=== PATIENT | female | born 1955 | race Caucasian/White ===

== ENCOUNTER 2017-02-28 10:33 | Inpatient (IN) | payer BC ==
[~2017-02-28] VITALS: Ht 165.1 cm; Wt 106.2 kg
[~2017-02-28 10:33] MED LIST: ACET325T16 PO; ESTR0.5T PO; LISI1TAB7 PO; METF500T4 PO; OMEP20CA9 PO; PREG100C PO; SERT100T8 PO; SUCR1TAB35 PO; TOPI100T8 PO
--- NOTE | 2017-02-28 10:46 | PHYS DOC ---
Past Medical History Past Medical History: Depression, Diabetes-Type II, Fibromyalgia, High Cholesterol, Hypertension, Migraines Additional Past Medical Histor: SPASTIC COLON, TMJ Past Surgical History: Cholecystectomy, Hysterectomy, Tubal ligation Additional Past Surgical Histo: KIDNEY STONES, L EAR Alcohol Use: None Drug Use: None Adult General Chief Complaint Chief Complaint: CHEST PAIN HPI HPI Patient is a 61 year old female who presents with with chest pain. She states it started last night last about 3 hours it came on at rest nothing made the pain better or worse pain she describes it as a pressure/throbbing pain in the left chest that did not radiate. She rated a 5 out of 10. She denied any shortness of breath or nausea with this or diaphoresis. It went away last night and this morning it returned. This morning it returned, she does states she felt some tingling in her right arm and she rated a 3 out of 10 at that time. And then it resolved again and came back a third time. Again there was no activities associated with this discomfort. She was just sitting in a car driving with her when the pain returned. She presented the ER and states the pains of 3 out of 10 and has no associated symptoms down her arms at this time, no nausea, no shortness of breath. One nitroglycerin did take it down to a 2. She was admitted in 2016 and had negative stress test at that time. She does have family history with her father having coronary disease in his 60s and her mother in her 70s. She does have dyslipidemia, diabetes, hypertension and is allergic to statins. Review of Systems Review of Systems Constitutional: Denies fever or chills [] Eyes: Denies change in visual acuity, redness, or eye pain [] HENT: Denies nasal congestion or sore throat [] Respiratory: Denies cough or shortness of breath [] Cardiovascular: No additional information not addressed in HPI [] GI: Denies abdominal pain, nausea, vomiting, bloody stools or diarrhea [] : Denies dysuria or hematuria [] Musculoskeletal: Denies back pain or joint pain [] Integument: Denies rash or skin lesions [] Neurologic: Denies headache, focal weakness or sensory changes [] Endocrine: Denies polyuria or polydipsia [] Current Medications Current Medications Current Medications Medications (Trade) Dose Ordered Sig/Jason Start Time Stop Time Status Last Admin Dose Admin Nitroglycerin (Nitrostat) 0.4 mg PRN Q5MIN PRN 02/28/17 12:15 02/28/17 12:13 0.4 MG Allergies Allergies Allergies Coded Allergies Type Severity Reaction Last Updated Verified prochlorperazine Allergy Severe SIEZURES 06/13/15 Yes Thcdmbn-Lzj-Yyl Reductase Inhibitor Allergy Intermediate RASH, LEG CRAMPS Yes egg Allergy Intermediate DIARRHEA 06/13/15 Yes lactose Allergy Intermediate DIARRHEA 06/13/15 Yes Physical Exam Physical Exam Constitutional: Well developed, well nourished, no acute distress, non-toxic appearance. [] HENT: Normocephalic, atraumatic, bilateral external ears normal, oropharynx moist, no oral exudates, nose normal. [] Eyes: PERRLA, EOMI, conjunctiva normal, no discharge. [] Neck: Normal range of motion, no tenderness, supple, no stridor. [] Cardiovascular:Heart rate regular rhythm, no murmur [] Lungs & Thorax: Bilateral breath sounds clear to auscultation [] Abdomen: Bowel sounds normal, soft, no tenderness, no masses, no pulsatile masses. [] Skin: Warm, dry, no erythema, no rash. [] Back: No tenderness, no CVA tenderness. [] Extremities: No tenderness, no cyanosis, no clubbing, ROM intact, no edema. [] Neurologic: Alert and oriented X 3, normal motor function, normal sensory function, no focal deficits noted. [] Psychologic: Affect normal, judgement normal, mood normal. [] Current Patient Data Vital Signs Vital Signs Date Time Temp Pulse Resp B/P (MAP) Pulse Ox O2 Delivery O2 Flow Rate FiO2 02/28/17 12:13 58 123/61 02/28/17 12:02 16 95 Room Air 02/28/17 11:00 98.3 98.3 Lab Values Laboratory Tests Test 02/28/17 10:46 02/28/17 11:19 Urine Collection Type Unknown Urine Color Yellow Urine Clarity Clear Urine pH 6.0 Urine Specific [place] 1.015 Urine Protein Negative mg/dL (NEG-TRACE) Urine Glucose (UA) Negative mg/dL (NEG) Urine Ketones (Stick) Negative mg/dL (NEG) Urine Blood Negative (NEG) Urine Nitrite Negative (NEG) Urine Bilirubin Negative (NEG) Urine Urobilinogen Dipstick 0.2 mg/dL (0.2 mg/dL) Urine Leukocyte Esterase Moderate (NEG) Urine RBC 0 /HPF (0-2) Urine WBC 5-10 /HPF (0-4) Urine Squamous Epithelial Cells Few /LPF Urine Bacteria Few /HPF (0-FEW) Urine Opiates Screen Neg (NEG) Urine Methadone Screen Neg (NEG) Urine Barbiturates Neg (NEG) Urine Phencyclidine Screen Neg (NEG) Urine Amphetamine/Methamphetamine Neg (NEG) Urine Benzodiazepines Screen Neg (NEG) Urine Cocaine Screen Neg (NEG) Urine Cannabinoids Screen Neg (NEG) Urine Ethyl Alcohol Neg (NEG) White Blood Count 7.0 x10^3/uL (4.0-11.0) Red Blood Count 4.06 x10^6/uL (3.50-5.40) Hemoglobin 11.5 g/dL (12.0-15.5) L Hematocrit 34.6 % (36.0-47.0) L Mean Corpuscular Volume 85 fL (79-100) Mean Corpuscular Hemoglobin 28 pg (25-35) Mean Corpuscular Hemoglobin Concent 33 g/dL (31-37) Red Cell Distribution Width 14.4 % (11.5-14.5) Platelet Count 233 x10^3/uL (140-400) Neutrophils (%) (Auto) 61 % (31-73) Lymphocytes (%) (Auto) 26 % (24-48) Monocytes (%) (Auto) 9 % (0-9) Eosinophils (%) (Auto) 4 % (0-3) H Basophils (%) (Auto) 1 % (0-3) Neutrophils # (Auto) 4.3 x10^3uL (1.8-7.7) Lymphocytes # (Auto) 1.8 x10^3/uL (1.0-4.8) Monocytes # (Auto) 0.6 x10^3/uL (0.0-1.1) Eosinophils # (Auto) 0.3 x10^3/uL (0.0-0.7) Basophils # (Auto) 0.0 x10^3/uL (0.0-0.2) Prothrombin Time 13.2 SEC (11.7-14.0) Prothrombin Time INR 1.1 (0.8-1.1) Sodium Level 141 mmol/L (136-145) Potassium Level 4.1 mmol/L (3.5-5.1) Chloride Level 103 mmol/L (98-107) Carbon Dioxide Level 26 mmol/L (21-32) Anion Gap 12 (6-14) Blood Urea Nitrogen 26 mg/dL (7-20) H Creatinine 1.0 mg/dL (0.6-1.0) Estimated GFR (Cockcroft-Gault) 56.4 Glucose Level 103 mg/dL (70-99) H Calcium Level 9.6 mg/dL (8.5-10.1) Magnesium Level 1.9 mg/dL (1.8-2.4) Total Bilirubin 0.3 mg/dL (0.2-1.0) Direct Bilirubin 0.1 mg/dL (0.0-0.2) Aspartate Amino Transferase (AST) 28 U/L (15-37) Alanine Aminotransferase (ALT) 13 U/L (14-59) L Alkaline Phosphatase 115 U/L (46-116) Creatine Kinase 292 U/L (26-192) H Creatine Kinase MB (Mass) 3.3 ng/mL (0.0-3.6) Creatine Kinase MB Relative Index 1.1 % (0-4) Troponin I Quantitative < 0.017 ng/mL (0.000-0.055) CT-Vgy-R-Type Natriuretic Peptide 79 pg/mL (0-124) Total Protein 7.5 g/dL (6.4-8.2) Albumin 4.0 g/dL (3.4-5.0) Lipase 157 U/L (73-393) Thyroid Stimulating Hormone (TSH) 1.320 uIU/mL (0.358-3.74) Laboratory Tests 02/28/17 11:19 Laboratory Tests 02/28/17 11:19 EKG EKG EKG shows sinus rhythm rate 66 bpm with a intraventricular block with a QRS 134 ms, ST elevations appreciated, T-wave inversions in lead 1, aVL, left axis deviation noted, QTC 406 ms, as interpreted by me. EKG is changed from one that was preformed on 2016 Radiology/Procedures Radiology/Procedures [facility] [address] [place] [address] IMAGING REPORT Signed PATIENT: CHIQUIS YOUNG ACCOUNT: [id number] : 1955 LOCATION: ER AGE: 61 SEX: F EXAM STATUS: PRE ER ORD. PHYSICIAN: MURRAY RAMIREZ MD REASON: chest pain PROCEDURE: PORTABLE CHEST 1V AP portable chest radiograph 02/28/2017 Clinical History: Left-sided chest pain since last night. An AP portable erect digital radiograph of the chest was obtained. Comparison study is dated 06/13/2015. The cardiac and mediastinal silhouettes are within normal limits in size and configuration. No acute pulmonary infiltrate is seen. No pleural effusion or pneumothorax is noted. The osseous structures are grossly intact. Impression: No acute abnormality is seen. DICTATED and SIGNED BY: KEHINDE TAFOYA MD DATE: 02/28/17 1055 CC: MURRAY RAMIREZ MD; AURELIANO VALENTIN MD ~ Impressions: Chest pain Dyslipidemia Diabetes Hypertension Fibromyalgia Course & Med Decision Making Course & Med Decision Making Pertinent Labs and Imaging studies reviewed. (See chart for details) Initial troponin, chest x-ray nonacute. Her pain did improve from a 3 to a 2 with nitroglycerin. She does have an intraventricular block noted on EKG this different than one that was performed in June 2015 when she had her negative nuclear stress test at that time. Spoke with Dr. jorge belle who is agreeable to Lovenox and admitting. Spoke with Dr. Barrios who accepts admission for Dr. Rojas. Patient is being admitted in stable condition at this time. Dragon Disclaimer Dragon Disclaimer This electronic medical record was generated, in whole or in part, using a voice recognition dictation system. Departure Departure Impression: Primary Impression: Chest pain Disposition: ADMITTED INPATIENT Admitting Physician: Aureliano Valentin Condition: STABLE Referrals: AURELIANO VALENTIN MD (PCP) Problem Qualifiers Primary Impression: Chest pain Chest pain type: unspecified Qualified Codes: R07.9 - Chest pain, unspecified MURRAY RAMIREZ MD Feb 28, 2017 10:46
[2017-02-28 10:59] LABS: BILIRUBIN,URINE NEGATIVE (NEG); GLUCOSE,URINE NEGATIVE (NEG); NITRITE,URINE NEGATIVE (NEG); PROTEIN,URINE NEGATIVE (NEG-TRACE); UROBILINOGEN,URINE 0.2 mg/dL (0.2 mg/dL)
--- NOTE | 2017-02-28 11:01 | RAD ---
AP portable chest radiograph 02/28/2017 Clinical History: Left-sided chest pain since last night. An AP portable erect digital radiograph of the chest was obtained. Comparison study is dated 06/13/2015. The cardiac and mediastinal silhouettes are within normal limits in size and configuration. No acute pulmonary infiltrate is seen. No pleural effusion or pneumothorax is noted. The osseous structures are grossly intact. Impression: No acute abnormality is seen.
[2017-02-28 11:05] LABS: BARBITURATES NEG (NEG); BENZODIAZEPINES NEG (NEG); CANNABINOIDS NEG (NEG); COCAINE NEG (NEG); METHADONE NEG (NEG); OPIATES NEG (NEG); PHENCYCLIDINE NEG (NEG)
[2017-02-28 11:12] LABS: BACTERIA,URINE FEW /HPF (0-FEW); RBC,URINE 0 /HPF (0-2); SQUAMOUS EPITHELIAL CELL,UR FEW /LPF
[2017-02-28 11:30] LABS: BASO % 1 % (0-3); EOS % 4 % (0-3); HEMATOCRIT 34.6 % (36.0-47.0); HEMOGLOBIN 11.5 g/dL (12.0-15.5); LYMPH # 1.8 x10^3/uL (1.0-4.8); LYMPH % 26 % (24-48); MEAN CORPUSCULAR HEMOGLOBIN 28 pg (25-35); MEAN CORPUSCULAR HGB CONC 33 g/dL (31-37); MEAN CORPUSCULAR VOLUME 85 fL (79-100); MONO % 9 % (0-9); NEUT % 61 % (31-73); PLATELET COUNT 233 x10^3/uL (140-400); RED BLOOD COUNT 4.06 x10^6/uL (3.50-5.40); RED CELL DISTRIBUTION WIDTH 14.4 % (11.5-14.5)
[2017-02-28 11:42] LABS: INR 1.1 (0.8-1.1); PROTHROMBIN TIME PATIENT 13.2 SEC (11.7-14.0)
[2017-02-28 11:45] LABS: CALCIUM 9.6 mg/dL (8.5-10.1); GFR 56.4; POTASSIUM 4.1 mmol/L (3.5-5.1)
[2017-02-28 11:51] LABS: DIRECT BILIRUBIN 0.1 mg/dL (0.0-0.2); MAGNESIUM 1.9 mg/dL (1.8-2.4); TOTAL BILIRUBIN 0.3 mg/dL (0.2-1.0); TOTAL PROTEIN 7.5 g/dL (6.4-8.2)
[2017-02-28 12:00] LABS: CKMB MASS 3.3 ng/mL (0.0-3.6)
--- NOTE | 2017-02-28 12:13 | EKG ---
[facility] [address] [place] [address] Test Date: 2017-02-28 Test Time: 10:46:08 Pat Name: CHIQUIS YOUNG Department: Room: Gender: F Tester Sound: : 1955 Requested By: MURRAY RAMIREZ Order Number: [id number] Reading MD: Measurements Intervals [place] Rate: 66 P: 12 FL: 168 QRS: -34 QRSD: 134 T: 93 QT: 386 QTc: 406 Interpretive Statements SINUS RHYTHM ABNORMAL LEFT AXIS DEVIATION NON SPECIFIC INTRAVENTRICULAR BLOCK QRS(T) CONTOUR ABNORMALITY CONSISTENT WITH INFERIOR INFARCT PROBABLY OLD RI6.01 Unconfirmed report No previous ECG available for comparison
[2017-02-28] MEDS ORDERED: NITROGLYCERIN SUBLINGUAL 0.4 MG BOTTLE OF 25. SL PRN (12:15)
[2017-02-28] MEDS ORDERED: LIDO:MAALOX:DONNATAL 1:1:1 15 ML SINGLE DOSE SWSW ONE (13:15)
[2017-02-28] MEDS ORDERED: MORPHINE SULFATE 2 MG/ML DISP.SYRIN. IV PRN (13:15)
[2017-02-28] MEDS ORDERED: ASPIRIN 325 MG TABLET PO ONE (13:15)
[2017-02-28] MEDS ORDERED: ONDANSETRON PF 4 MG/2 ML VIAL. IV PRN (13:15)
[2017-02-28 15:00] VITALS: BP 125/65
[2017-02-28] MEDS ORDERED: GLIM2TAB2 PO (15:33)
[2017-02-28] MEDS: GLIMEPIRIDE 2 MG TABLET. PO SCH (18:03)
[2017-02-28 19:15] VITALS: BP 104/54
[2017-02-28] MEDS: TOPIRAMATE 100 MG TABLET. PO SCH (21:34)
[2017-02-28] MEDS: PREGABALIN 50 MG CAPSULE PO SCH (21:34)
[2017-02-28] MEDS: ENOXAPARIN 40 MG/0.4 ML SYRINGE. SQ SCH (21:35)
[2017-02-28 22:55] VITALS: BP 103/54
[2017-03-01] VITALS (12 sets, daily range): BP systolic 104–140; BP diastolic 50–63
[2017-03-01 04:30] LABS: BASO % 1 % (0-3); EOS % 5 % (0-3); HEMATOCRIT 33.3 % (36.0-47.0); HEMOGLOBIN 11.2 g/dL (12.0-15.5); LYMPH # 2.2 x10^3/uL (1.0-4.8); LYMPH % 34 % (24-48); MEAN CORPUSCULAR HEMOGLOBIN 29 pg (25-35); MEAN CORPUSCULAR HGB CONC 34 g/dL (31-37); MEAN CORPUSCULAR VOLUME 87 fL (79-100); MONO % 8 % (0-9); NEUT % 53 % (31-73); PLATELET COUNT 218 x10^3/uL (140-400); RED BLOOD COUNT 3.85 x10^6/uL (3.50-5.40); RED CELL DISTRIBUTION WIDTH 14.4 % (11.5-14.5); WHITE BLOOD COUNT 6.6 x10^3/uL (4.0-11.0)
[2017-03-01 04:50] LABS: ALBUMIN 3.5 g/dL (3.4-5.0); CALCIUM 9.4 mg/dL (8.5-10.1); CREATININE 1.1 mg/dL (0.6-1.0); GFR 50.5; POTASSIUM 3.4 mmol/L (3.5-5.1); TOTAL BILIRUBIN 0.2 mg/dL (0.2-1.0); TOTAL PROTEIN 7.1 g/dL (6.4-8.2)
[2017-03-01] MEDS ORDERED: SERTRALINE HCL 150 MG PO SCH (09:00)
[2017-03-01] MEDS ORDERED: hydroCHLOROthiazide 25 MG TABLET PO SCH (09:00)
[2017-03-01] MEDS: PREGABALIN 50 MG CAPSULE PO SCH ×2 (09:00→21:49)
--- NOTE | 2017-03-01 09:44 | PDOC2 ---
GABRIELA OWEN WELFARE MANAGER 03/01/17 0944: CARDIAC CONSULT DATE OF CONSULT Date of Consult DATE: 03/01/17 TIME: 09:24 REASON FOR CONSULT Reason for Consult: Chest pain REFERRING PHYSICIAN Referring Physician: Nathan SOURCE Source: Chart review, Patient HISTORY OF PRESENT ILLNESS HISTORY OF PRESENT ILLNESS This is a pleasant 61 yo female admitted for complains of chest pain. Reports that she has been having chest discomfort intermittently and have feeling somewhat weak. Reports that Wednesday is when her chest pressure started becoming more intense. This lasted about 3 hours before it got better. There was no jaw or arm pain. Denies any SOA. This recurred again yesterday after yazidi and this time was longer. She then went to ED and was given NTG which helped her discomfort. Denies any CAD, VTE, falls or any recent injury. In addition she now has LBBB in her EKG which she is not aware off. PAST MEDICAL HISTORY Past Medical History Cardiovascular: HTN, Hyperlipidemia (No statin) Pulmonary: No pertinent hx CENTRAL NERVOUS SYSTEM: Other (No pertinent history) GI: GERD (esophageal stricture) Heme/Onc: No pertinent hx Hepatobiliary: No pertinent hx Psych: Anxiety, Depression Musculoskeletal: Osteoarthritis Rheumatologic: Fibromyalgia Infectious disease: No pertinent hx ENT: No pertinent hx Renal/: Other (nephrolithiasis) Endocrine: Diabetes (2) Dermatology: No pertinent hx PAST SURGICAL HISTORY Past Surgical History Cholecystectomy, Tubal Ligation, Tonsillectomy, Hysterectomy, Other (cystoscopy , esophageal dilatation (last one was 2015 8 months ago)) FAMILY HISTORY Family History Coronary Artery Disease (mother 50s and father) SOCIAL HISTORY Smoke: No ALCOHOL: none Drugs: None Lives: with Family CURRENT MEDICATIONS CURRENT MEDICATIONS Current Medications Medications (Trade) Dose Ordered Sig/Jason Route PRN Reason Start Time Stop Time Status Last Admin Dose Admin Nitroglycerin (Nitrostat) 0.4 mg PRN Q5MIN PRN SL CHEST PAIN 02/28/17 12:15 02/28/17 12:13 Morphine Sulfate 2 mg PRN Q2HR PRN IV PAIN 02/28/17 13:15 03/01/17 13:14 02/28/17 13:30 Aspirin (Yasmany Aspirin) 325 mg 1X ONCE PO 02/28/17 13:15 02/28/17 13:16 DC 02/28/17 13:29 Enoxaparin Sodium (Lovenox 100mg Syringe) 100 mg Q12HR SQ 02/28/17 13:00 02/28/17 21:16 DC 02/28/17 13:31 Multi-Ingredient Mouthwash/Gargle (Gi Cocktail Single Dose) 15 ml 1X ONCE SWSW 02/28/17 13:15 02/28/17 13:25 DC 02/28/17 13:30 Glimepiride (Amaryl) 2 mg DAILYWSUP PO 02/28/17 17:00 02/28/17 18:03 Topiramate (Topamax) 100 mg QHS PO 02/28/17 21:00 02/28/17 21:34 Pregabalin (Lyrica) 100 mg BID PO 02/28/17 21:00 02/28/17 21:34 Enoxaparin Sodium (Lovenox 40mg Syringe) 40 mg Q24H SQ 02/28/17 21:30 02/28/17 21:35 ALLERGIES ALLERGIES: Coded Allergies: prochlorperazine (Verified Allergy, Severe, SIEZURES, 06/13/15) Wevqjfa-Osa-Ptb Reductase Inhibitor (Verified Allergy, Intermediate, RASH , LEG CRAMPS, 06/13/15) egg (Verified Allergy, Intermediate, DIARRHEA, 06/13/15) gluten (Verified Allergy, Intermediate, 03/01/17) lactose (Verified Allergy, Intermediate, DIARRHEA, 06/13/15) ROS Review of System 14 point ROS evaluated with pertinent positives noted per HPI PHYSICAL EXAM General: Alert, Oriented X3, Cooperative, No acute distress HEENT: Atraumatic, Mucous membr. moist/pink Lungs: Clear to auscultation, Normal air movement Heart: Regular rate (SR), Normal S1, Normal S2 Abdomen: Soft, No tenderness Extremities: No cyanosis, No edema Skin: No breakdown, No significant lesion Neuro: Normal speech, Sensation intact Psych/Mental Status: Mental status NL, Mood NL MUSCULOSKELETAL: Osteoarthritic changes both hands VITALS VITALS Vital Signs Date Time Temp Pulse Resp B/P (MAP) Pulse Ox O2 Delivery O2 Flow Rate FiO2 03/01/17 07:45 Room Air 03/01/17 07:00 97.8 67 18 111/60 (77) 97 97.8 LABS Lab: Laboratory Tests Test 02/28/17 10:46 02/28/17 11:19 02/28/17 16:29 02/28/17 19:05 Urine Collection Type Unknown Urine Color Yellow Urine Clarity Clear Urine pH 6.0 Urine Specific [place] 1.015 Urine Protein Negative mg/dL (NEG-TRACE) Urine Glucose (UA) Negative mg/dL (NEG) Urine Ketones (Stick) Negative mg/dL (NEG) Urine Blood Negative (NEG) Urine Nitrite Negative (NEG) Urine Bilirubin Negative (NEG) Urine Urobilinogen Dipstick 0.2 mg/dL (0.2 mg/dL) Urine Leukocyte Esterase Moderate (NEG) Urine RBC 0 /HPF (0-2) Urine WBC 5-10 /HPF (0-4) Urine Squamous Epithelial Cells Few /LPF Urine Bacteria Few /HPF (0-FEW) Urine Opiates Screen Neg (NEG) Urine Methadone Screen Neg (NEG) Urine Barbiturates Neg (NEG) Urine Phencyclidine Screen Neg (NEG) Urine Amphetamine/Methamphetamine Neg (NEG) Urine Benzodiazepines Screen Neg (NEG) Urine Cocaine Screen Neg (NEG) Urine Cannabinoids Screen Neg (NEG) Urine Ethyl Alcohol Neg (NEG) White Blood Count 7.0 x10^3/uL (4.0-11.0) Red Blood Count 4.06 x10^6/uL (3.50-5.40) Hemoglobin 11.5 g/dL (12.0-15.5) Hematocrit 34.6 % (36.0-47.0) Mean Corpuscular Volume 85 fL (79-100) Mean Corpuscular Hemoglobin 28 pg (25-35) Mean Corpuscular Hemoglobin Concent 33 g/dL (31-37) Red Cell Distribution Width 14.4 % (11.5-14.5) Platelet Count 233 x10^3/uL (140-400) Neutrophils (%) (Auto) 61 % (31-73) Lymphocytes (%) (Auto) 26 % (24-48) Monocytes (%) (Auto) 9 % (0-9) Eosinophils (%) (Auto) 4 % (0-3) Basophils (%) (Auto) 1 % (0-3) Neutrophils # (Auto) 4.3 x10^3uL (1.8-7.7) Lymphocytes # (Auto) 1.8 x10^3/uL (1.0-4.8) Monocytes # (Auto) 0.6 x10^3/uL (0.0-1.1) Eosinophils # (Auto) 0.3 x10^3/uL (0.0-0.7) Basophils # (Auto) 0.0 x10^3/uL (0.0-0.2) Prothrombin Time 13.2 SEC (11.7-14.0) Prothromb Time International Ratio 1.1 (0.8-1.1) Sodium Level 141 mmol/L (136-145) Potassium Level 4.1 mmol/L (3.5-5.1) Chloride Level 103 mmol/L (98-107) Carbon Dioxide Level 26 mmol/L (21-32) Anion Gap 12 (6-14) Blood Urea Nitrogen 26 mg/dL (7-20) Creatinine 1.0 mg/dL (0.6-1.0) Estimated GFR (Cockcroft-Gault) 56.4 Glucose Level 103 mg/dL (70-99) Calcium Level 9.6 mg/dL (8.5-10.1) Magnesium Level 1.9 mg/dL (1.8-2.4) Total Bilirubin 0.3 mg/dL (0.2-1.0) Direct Bilirubin 0.1 mg/dL (0.0-0.2) Aspartate Amino Transf (AST/SGOT) 28 U/L (15-37) Alanine Aminotransferase (ALT/SGPT) 13 U/L (14-59) Alkaline Phosphatase 115 U/L (46-116) Creatine Kinase 292 U/L (26-192) Creatine Kinase MB (Mass) 3.3 ng/mL (0.0-3.6) Creatine Kinase MB Relative Index 1.1 % (0-4) Troponin I Quantitative < 0.017 ng/mL (0.000-0.055) < 0.017 ng/mL (0.000-0.055) PW-Nmg-C-Type Natriuretic Peptide 79 pg/mL (0-124) Total Protein 7.5 g/dL (6.4-8.2) Albumin 4.0 g/dL (3.4-5.0) Lipase 157 U/L (73-393) Thyroid Stimulating Hormone (TSH) 1.320 uIU/mL (0.358-3.74) Glucose (Fingerstick) 113 mg/dL (70-99) Test 02/28/17 20:35 03/01/17 01:15 03/01/17 03:30 03/01/17 08:02 Glucose (Fingerstick) 108 mg/dL (70-99) 81 mg/dL (70-99) Troponin I Quantitative < 0.017 ng/mL (0.000-0.055) White Blood Count 6.6 x10^3/uL (4.0-11.0) Red Blood Count 3.85 x10^6/uL (3.50-5.40) Hemoglobin 11.2 g/dL (12.0-15.5) Hematocrit 33.3 % (36.0-47.0) Mean Corpuscular Volume 87 fL (79-100) Mean Corpuscular Hemoglobin 29 pg (25-35) Mean Corpuscular Hemoglobin Concent 34 g/dL (31-37) Red Cell Distribution Width 14.4 % (11.5-14.5) Platelet Count 218 x10^3/uL (140-400) Neutrophils (%) (Auto) 53 % (31-73) Lymphocytes (%) (Auto) 34 % (24-48) Monocytes (%) (Auto) 8 % (0-9) Eosinophils (%) (Auto) 5 % (0-3) Basophils (%) (Auto) 1 % (0-3) Neutrophils # (Auto) 3.5 x10^3uL (1.8-7.7) Lymphocytes # (Auto) 2.2 x10^3/uL (1.0-4.8) Monocytes # (Auto) 0.5 x10^3/uL (0.0-1.1) Eosinophils # (Auto) 0.3 x10^3/uL (0.0-0.7) Basophils # (Auto) 0.0 x10^3/uL (0.0-0.2) Sodium Level 143 mmol/L (136-145) Potassium Level 3.4 mmol/L (3.5-5.1) Chloride Level 105 mmol/L (98-107) Carbon Dioxide Level 30 mmol/L (21-32) Anion Gap 8 (6-14) Blood Urea Nitrogen 22 mg/dL (7-20) Creatinine 1.1 mg/dL (0.6-1.0) Estimated GFR (Cockcroft-Gault) 50.5 BUN/Creatinine Ratio 20 (6-20) Glucose Level 86 mg/dL (70-99) Calcium Level 9.4 mg/dL (8.5-10.1) Total Bilirubin 0.2 mg/dL (0.2-1.0) Aspartate Amino Transf (AST/SGOT) 106 U/L (15-37) Alanine Aminotransferase (ALT/SGPT) 40 U/L (14-59) Alkaline Phosphatase 185 U/L (46-116) Total Protein 7.1 g/dL (6.4-8.2) Albumin 3.5 g/dL (3.4-5.0) Albumin/Globulin Ratio 1.0 (1.0-1.7) STRESS TEST STRESS TEST Conclusion 1. No evidence of EKG changes with vasodilator stress. 2. Normal myocardial perfusion and EF with stress. 3. Low risk study. DATE: 06/14/15 1428 ASSESSMENT/PLAN ASSESSMENT/PLAN 1. Chest pain: suspicious for unstable angina 2. LBBB: new by comparison. Troponin series normal 3. HTN/HLP/DM2 allergy to statin Recommendations 1. Discussed MPI vs LHC. Agreed to proceed with LHC. Risks and benefits discussed 2. Replace K. IVF. Lipid panel 3. Restart ACEi tomorrow. Problems: NIKI MURRAY MD 03/01/171955: CARDIAC CONSULT ALLERGIES ALLERGIES: Coded Allergies: prochlorperazine (Verified Allergy, Severe, SIEZURES, 06/13/15) Vlxejrh-Luk-Jvr Reductase Inhibitor (Verified Allergy, Intermediate, RASH , LEG CRAMPS, 06/13/15) egg (Verified Allergy, Intermediate, DIARRHEA, 06/13/15) gluten (Verified Allergy, Intermediate, 03/01/17) lactose (Verified Allergy, Intermediate, DIARRHEA, 06/13/15) ASSESSMENT/PLAN ASSESSMENT/PLAN Patient seen and examined. Agree with [employer] CHAIR's assessment and plan. CP with some typical features concerning for unstable angina. CO ruled out. Plan for cardiac cath and possible PCI today. Risks and benefits explained. Thank you for your consultation. Problems: GABRIELA OWEN APRN Mar 01, 2017 09:44 NIKI MURRAY MD Mar 01, 2017 19:56
[2017-03-01] MEDS ORDERED: IV NORMAL SALINE 1000ML BAG 1,000 ML IV ONE (09:45)
--- NOTE | 2017-03-01 10:12 | EKG ---
[facility] [address] [place] [address] Test Date: 2017-03-01 Test Time: 09:29:34 Pat Name: CHIQUIS YOUNG Department: Room: 204 1 Gender: F Dip Guider Stoves: : 1955 Requested By: RACH SANCHEZ Order Number: [id number] Reading MD: Measurements Intervals [place] Rate: 70 P: VT: QRS: -35 QRSD: 132 T: 58 QT: 388 QTc: 422 Interpretive Statements ATRIAL FLUTTER ABNORMAL LEFT AXIS DEVIATION NON SPECIFIC INTRAVENTRICULAR BLOCK QRS(T) CONTOUR ABNORMALITY CONSISTENT WITH INFERIOR INFARCT PROBABLY OLD ABNORMAL ECG RI6.01 No previous ECG available for comparison
--- NOTE | 2017-03-01 10:31 | HP ---
ADMIT DATE: 02/28/2017 CHIEF COMPLAINT: Chest pain. HISTORY OF PRESENT ILLNESS AND HOSPITAL COURSE: This patient is a 61-year-old female in her usual state of health. The morning of admission, had approximately 3 hours worth of chest pain, which she rated as 5/10. She denied any shortness of breath, nausea, vomiting, diaphoresis or radiation, although she did have some right arm numbness associated shortly after this. This pain resolved and the patient fell asleep, and during the next day, pain recurred during worship. This lasted again several hours. Came to the Emergency Room for evaluation and was given a GI cocktail, without significant relief. Was given nitroglycerin, with mild relief. The patient's EKG did show changes of old OH, compared to previous EKG over a year ago. Due to these findings, the patient was admitted for further evaluation and Cardiology consultation. The patient had negative troponins during initial hospital stay and no other significant findings. PAST MEDICAL HISTORY: Significant for: 1. Type 2 diabetes. 2. Morbid obesity. 3. Hypertension. 4. High cholesterol. 5. Fibromyalgia. 6. Reflux disease. 7. Irritable bowel syndrome. 8. Anxiety and depression. 9. History of migraine headaches. PAST SURGICAL HISTORY: Significant for tonsil and adenoidectomy, right ear surgery, ovarian cyst laparoscope, bilateral tubal ligation, cholecystectomy, kidney stone retrieval and total abdominal hysterectomy. MEDICATIONS: The patient's medications on admission are metformin 500 two times a day, estrogen 0.5 mg daily, Prilosec 20 mg b.i.d., Zoloft 100 mg daily, Lyrica 100 mg 2 tablets per day, Topamax 100 mg daily, Tylenol Gel caps 500 mg q. 4 hours p.r.n., Lomotil 1 p.o. b.i.d. p.r.n., lisinopril/hydrochlorothiazide 20/25 one daily and glimepiride 2 mg daily. FAMILY HISTORY: Significant for a stroke in her mother and emphysema in her father, both are . SOCIAL HISTORY: 1. She lives with her , who has had significant stroke and is somewhat debilitated. 2. The patient has never smoked. The patient denies alcohol use. 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 ALLERGIES: THE PATIENT EXHIBITS ALLERGIES TO STATIN MEDICATIONS WELL COMPAZINE. REVIEW OF SYSTEMS: The patient was in her usual state of health without recent nausea, vomiting, diaphoresis, cough, cold, congestion, shortness of breath, weight loss or weight gain. PHYSICAL EXAMINATION: GENERAL: This is a well-nourished, moderately obese female in no apparent distress on my exam. She is alert and oriented x 3. HEENT: Benign. NECK: Supple, without JVD or bruit. CARDIAC EXAMINATION: Regular rate and rhythm. LUNGS: Clear. ABDOMEN: Soft, nontender. EXTREMITIES: With 2+ pulses, without significant edema. NEUROLOGICAL EXAMINATION: Showed no unilateral findings. ASSESSMENT: Chest pain, consistent with esophageal spasm versus cardiac pain. PLAN: To proceed with Cardiology evaluation, order cardiac echo and proceed with stress testing if indicated. RACH SANCHEZ MD DR: NAA/kaye JOB#: [id number] / [id number]
[2017-03-01] MEDS: ACETAMINOPHEN 325 MG TABLET. PO PRN ×2 (10:47→17:39)
[2017-03-01] MEDS ORDERED: POTASSIUM CHLORIDE 20 MEQ TABLET.ER. PO ONE ×2 (13:00→18:00)
[2017-03-01 13:20] LABS: CHOLESTEROL/HDL RATIO 3.9
[2017-03-01] MEDS ORDERED: LIDOCAINE 2% 20 ML VIAL. ONE (15:29)
[2017-03-01] MEDS ORDERED: IOHEXOL 300 MG/ML 100ML VIAL. ONE (15:29)
--- NOTE | 2017-03-01 15:31 | PDOC ---
MODERATE SEDATION ASSESSMENT RISKS/ALTERNATIVES Risks/Alternatives Risks and alternatives of this type of sedation and procedure discussed with: RISK/ALTERNATIVES: Patient H & P ON CHART H & P H & P on chart and reviewed for co-morbid conditions and appropriate labs. H&P ON CHART: Yes STATUS PREG STATUS ASSESSED: N/A MEDS/ALLERGIES REVIEWED Meds/Allergies Reviewed Medications and Allergies including time and route of recently administered narcotics and sedatives. MEDS/ALLERGIES REVIEWED: Yes ASA RATING ASA RATING: II AIRWAY ASSESSMENT Airway Assessment Airway patency, oral function limitations, presence of caps, crowns, dentures, partials, and ability to extend neck assessed. AIRWAY ASSESSMENT: Yes MALLAMPATI SCORE MALLAMPATI SCORE: II PRE-SEDATION ASSESSMENT PRE-SEDATION ASSESSMENT: Yes NIKI MURRAY MD Mar 01, 2017 15:31
[2017-03-01] MEDS ORDERED: fentaNYL PF VIAL 100 MCG/2 ML VIAL ONE (16:13)
[2017-03-01] MEDS ORDERED: MIDAZOLAM HCL/PF 2 MG/2 ML VIAL. ONE (16:13)
[2017-03-01] MEDS ORDERED: fentaNYL PF VIAL 100 MCG/2 ML VIAL IV ONE (16:30)
[2017-03-01] MEDS ORDERED: IOHEXOL 300 MG/ML 100ML VIAL. IART ONE (16:30)
[2017-03-01] MEDS ORDERED: MIDAZOLAM HCL/PF 2 MG/2 ML VIAL. IV ONE (16:30)
[2017-03-01] MEDS ORDERED: LIDOCAINE 2% 20 ML VIAL. IJ ONE (16:30)
[2017-03-01] MEDS: SERTRALINE 50 MG TABLET. PO SCH (17:38)
[2017-03-01] MEDS: PANTOPRAZOLE 40 MG TABLET.DR. PO SCH (17:39)
[2017-03-01] MEDS: LISINOPRIL 20 MG TABLET PO SCH (17:39)
[2017-03-01] MEDS: GLIMEPIRIDE 2 MG TABLET. PO SCH (18:00)
[2017-03-01] MEDS ORDERED: HYDROcodone/APAP 7.5/325MG 1 TAB TABLET PO PRN (18:30)
[2017-03-01] MEDS: IV 1/2 NORMAL SALINE 1,000 ML IV SCH (18:37)
[2017-03-01] MEDS ORDERED: NITROGLYCERIN SUBLINGUAL 0.4 MG BOTTLE OF 25. SL PRN (18:45)
[2017-03-01] MEDS: TOPIRAMATE 100 MG TABLET. PO SCH (21:48)
[2017-03-01] MEDS: ENOXAPARIN 40 MG/0.4 ML SYRINGE. SQ SCH (21:50)
[2017-03-02] MEDS: ACETAMINOPHEN 325 MG TABLET. PO PRN (01:53)
[2017-03-02 03:15] VITALS: BP 101/52
[2017-03-02 07:00] VITALS: BP 108/62
[2017-03-02] MEDS: PREGABALIN 50 MG CAPSULE PO SCH (09:00)
[2017-03-02] MEDS ORDERED: hydroCHLOROthiazide 25 MG TABLET PO SCH (09:00)
--- NOTE | 2017-03-02 09:15 | CARD ---
APPROVED REPORT Procedure(s) performed: Left heart catheterization, selective coronary angiography and left ventricul ography Moderate sedation: 25 min INDICATION The indication(s) include : unstable angina . PROCEDURE NARRATIVE After explaining the risks, benefits and alternative options, informed consent was obtained from alexandra ent. Patient was brought to the cardiac Parts Designer and her right groin was prepped and draped in the us ual fashion. 20 mL of 2% lidocaine was infiltrated into the skin and subcutaneous tissues for local a nesthesia. Since she had difficulty with peripheral venous access, a 5 [place]e sheath was placed in th e right common femoral vein for medications administration during the procedure. Arterial access was then obtained in the right common femoral artery and a 6 [place]e sheath was inserted. 6 [place] JL4 and 6 [place] JR4 catheters placed to perform selective angiography of the left and right coronary arteri es. 6 [place] pigtail catheter was used to perform left ventriculography. Patient tolerated the proced ure well. Hemostasis was achieved using Angio-Seal and manual compression. There were no immediate co mplications. FINDINGS 1. Hemodynamics: Left ventricular end-diastolic pressure 18 mmHg. No pullback gradient across the a ortic valve. 2. Left ventriculography: Normal left ventricular systolic function with ejection fraction estimate d at 60%. No significant mitral regurgitation seen. 3. Coronary angiography: a. The left main coronary artery arose from the left sinus of Valsalva, gave rise to the left anteri or descending and left circumflex arteries and did not show any significant stenosis. b. The left anterior descending artery did not show any significant stenosis. c. The left circumflex artery was a large and dominant vessel that did not show any significant sten osis. d. The right coronary artery was a small and nondominant vessel that did not show any significant st enosis. Conclusion 1. No significant coronary artery disease 2. Normal left ventricle systolic function with ejection fraction estimated at 60%. Recommendations Cardiac Risk Reduction Program
[2017-03-02] MEDS ORDERED: RANI150T6 PO (09:37)
[2017-03-02] MEDS: PANTOPRAZOLE 40 MG TABLET.DR. PO SCH (09:52)
[2017-03-02] MEDS: LISINOPRIL 20 MG TABLET PO SCH (09:52)
[2017-03-02] MEDS: SERTRALINE 50 MG TABLET. PO SCH (09:52)
[2017-03-02 11:00] VITALS: BP 133/58
[2017-03-02] MEDS: IV 1/2 NORMAL SALINE 1,000 ML IV SCH (11:17)
--- NOTE | 2017-03-02 11:29 | CARD ---
APPROVED REPORT EXAM: Two-dimensional and M-mode echocardiogram with Doppler and color Doppler. Other Information Quality : Good INDICATION Chest Pain 2D DIMENSIONS RVDd2.6 (2.9-3.5cm)Left Atrium(2D)4.0 (1.6-4.0cm) IVSd0.9 (0.7-1.1cm)Aortic Root(2D)2.7 (2.0-3.7cm) LVDd4.4 (3.9-5.9cm)LVOT Diameter2.0 (1.8-2.4cm) PWd0.9 (0.7-1.1cm)LVDs2.9 (2.5-4.0cm) FS (%) 30.0 %SV54.6 ml LVEF(%)60.0 (>50%) Aortic Valve AoV Peak Jony.223.7cm/sAoV VTI41.7cm AO Peak GR.20.0mmHgLVOT Peak Jony.156.4cm/s LVOT VTI 32.38cmAO Mean GR.10mmHg TAE (VMAX)2.59ih2MVV (VTI)2.37cm2 AI P 1/2 Zvtd007kx Mitral Valve MV E Cprricnv11.6cm/sMV DECEL DNWC391li MV A Knlxdhao05.9cm/sMV JUX82fm E/A Ratio1.1MVA (PHT)3.21cm2 TDI E/Lateral E'14.3E/Medial E'12.1 Tricuspid Valve TR P. Bojjjvpd295vd/sRAP SYYFQUCI2zkKc TR Peak Gr.83vfAnJJVL52dzGo Pulmonary Vein S1 Smjwdxia38.5cm/sD2 Wildknkn44.5cm/s LEFT VENTRICLE The left ventricle is normal size. There is normal left ventricular wall thickness. The left ventricu lar systolic function is normal and the ejection fraction is within normal range. The Ejection Fracti on is 55-60%. There is normal LV segmental wall motion. Transmitral Doppler flow pattern is Grade I-a bnormal relaxation pattern. RIGHT VENTRICLE The right ventricle is normal size. The right ventricular systolic function is normal. ATRIA The left atrium is mildly dilated. The right atrium size is normal. The interatrial septum is intact with no evidence for an atrial septal defect or patent foramen ovale as noted on 2-D or Doppler imagi ng. AORTIC VALVE Not well visualized. Doppler and Color Flow revealed mild to moderate aortic regurgitation by visual estimation, but quantitatively appears to be mild in nature with a PHT of 498 ms There is no signific ant aortic valvular stenosis. MITRAL VALVE The mitral valve is normal in structure and function. There is no evidence of mitral valve prolapse. There is no mitral valve stenosis. Doppler and Color-flow revealed trace mitral regurgitation. TRICUSPID VALVE The tricuspid valve is normal in structure and function. Doppler and Color Flow revealed trace to mil d tricuspid regurgitation. The PA pressure was estimated at 28 mmHg. There is no tricuspid valve sten osis. PULMONIC VALVE Doppler and Color Flow revealed no pulmonic valvular regurgitation. There is no pulmonic valvular shanna nosis. GREAT VESSELS The aortic root is normal in size. The ascending aorta is normal in size. The IVC is normal in size a nd collapses >50% with inspiration. PERICARDIAL EFFUSION There is no evidence of significant pericardial effusion. Critical Notification Critical Value: No <Conclusion> The left ventricular systolic function is normal and the ejection fraction is within normal range. Th e Ejection Fraction is 55-60%. Doppler and Color Flow revealed mild to moderate aortic regurgitation by visual estimation, but quant itatively appears to be mild in nature with a PHT of 498 ms
--- NOTE | 2017-03-02 13:11 | DS ---
DATE OF DISCHARGE: 03/02/2017 ADMITTING DIAGNOSIS: Chest pain. DISMISSAL DIAGNOSIS: Gastroesophageal reflux disease with esophageal spasm. UNDERLYING DIAGNOSES: Type 2 diabetes, morbid obesity, hypertension, high cholesterol, fibromyalgia, irritable bowel syndrome, generalized anxiety, major depression. HOSPITAL COURSE: This is a 61-year-old female who came to the Emergency Department with crescendo type chest pain increasing over the last 48 hours. It was resolved with nitro partially in the Emergency Room. She underwent stress test, which was negative for coronary artery disease. Due to the patient's high risk factors, the patient elected to proceed with cardiac catheterization. This was accomplished on 03/01/2017 with negative findings. The patient's symptoms have improved and ongoing treatment for GI related chest pain will be started and the patient will be discharged to home to follow up in 1-2 weeks for continued care. She will continue her home medicines with the addition of Zantac 150 mg b.i.d. Of note, cardiac echo was done just prior to discharge and findings revealed an ejection fraction of 56% and mild to moderate aortic regurg was visualized. This will be followed by Cardiology as an outpatient. RACH SANCHEZ MD DR: NAA/kaye JOB#: [id number] / [id number]
== END 2017-03-02 12:53 | disposition home or self-care (01) | DRG 392 ==
LOC: ER 10:33 → 2 NORTH 11:45
PROVIDERS: ADMIT Family Medicine; ATTEND Family Medicine
PROC: 4A023N7 Measurement of Cardiac Sampling and Pressure, Left Heart, Percutaneous Approach (ICD-10-PCS; principal; 2017-02-28)
PROC: B2111ZZ Fluoroscopy of Multiple Coronary Arteries using Low Osmolar Contrast (ICD-10-PCS; 2017-02-28)
PROC: B2151ZZ Fluoroscopy of Left Heart using Low Osmolar Contrast (ICD-10-PCS; 2017-02-28)
DX: K21.9 Gastro-esophageal reflux disease without esophagitis (principal); E66.01 Morbid (severe) obesity due to excess calories; E11.9 Type 2 diabetes mellitus without complications; E78.00 Pure hypercholesterolemia, unspecified; E78.5 Hyperlipidemia, unspecified; F32.9 Major depressive disorder, single episode, unspecified; F41.1 Generalized anxiety disorder; I10 Essential (primary) hypertension; I44.7 Left bundle-branch block, unspecified; K58.9 Irritable bowel syndrome, unspecified; G43.909 Migraine, unspecified, not intractable, without status migrainosus; M19.90 Unspecified osteoarthritis, unspecified site; I35.1 Nonrheumatic aortic (valve) insufficiency; M79.7 Fibromyalgia; I25.2 Old myocardial infarction; Z82.3 Family history of stroke; Z82.49 Family history of ischemic heart disease and other diseases of the circulatory system; Z82.5 Family history of asthma and other chronic lower respiratory diseases; Z87.442 Personal history of urinary calculi; Z90.710 Acquired absence of both cervix and uterus; Z90.49 Acquired absence of other specified parts of digestive tract; Z98.51 Tubal ligation status; Z88.8 Allergy status to other drugs, medicaments and biological substances; Z91.012 Allergy to eggs; Z91.011 Allergy to milk products; Z68.38 Body mass index [BMI] 38.0-38.9, adult
CPT/HCPCS: 36415; 71010; 80048; 80053; 80061; 80076; 80307; 81001; 82553; 82962; 83690; 83735; 83880; 84443; 84484; 85025; 85610; 87086; 93005; 93306; 93458; 99152; 99153; C1769; C1771; C1892; G0269; J1644; J1650; J2250; J2270; J3010; J7030; Q9967; 99285-25; G0479; J2001

== ENCOUNTER 2017-09-09 19:05 | Emergency (ER) | payer BC ==
[2017-09-09] MEDS: HYDROcodone/APAP 5/325MG 1 TAB TABLET PO (19:59)
== END 2017-09-09 21:21 | disposition home or self-care (01) ==
LOC: ER 19:05
DX: S83.92XA Sprain of unspecified site of left knee, initial encounter (principal); E11.9 Type 2 diabetes mellitus without complications; F32.9 Major depressive disorder, single episode, unspecified; E78.00 Pure hypercholesterolemia, unspecified; I10 Essential (primary) hypertension; G43.909 Migraine, unspecified, not intractable, without status migrainosus; Z90.49 Acquired absence of other specified parts of digestive tract; Z98.51 Tubal ligation status; Z88.8 Allergy status to other drugs, medicaments and biological substances; Z91.012 Allergy to eggs; Z91.040 Latex allergy status; Z90.710 Acquired absence of both cervix and uterus; W18.40XA Slipping, tripping and stumbling without falling, unspecified, initial encounter; Y93.89 Activity, other specified; Y92.89 Other specified places as the place of occurrence of the external cause; Y99.8 Other external cause status
CPT/HCPCS: 73564; 73590; 99284

== ENCOUNTER → 2017-10-15 | Outpatient (CLI) | payer BC ==
[2017-10-15] MEDS: GADOBUTROL 10 MMOL/10 ML VIAL IV (11:59)
== END | disposition home or self-care (01) ==
LOC: KCIC MRI 10:25
DX: S83.092A Other subluxation of left patella, initial encounter (principal); M17.12 Unilateral primary osteoarthritis, left knee; I10 Essential (primary) hypertension; E11.9 Type 2 diabetes mellitus without complications; R56.9 Unspecified convulsions; X58.XXXA Exposure to other specified factors, initial encounter; Y93.89 Activity, other specified; Y92.89 Other specified places as the place of occurrence of the external cause; Y99.8 Other external cause status
CPT/HCPCS: 73723; 82565; A9585

== ENCOUNTER 2018-05-01 14:30 | Emergency (ER) | payer BC ==
[~2018-05-01] VITALS: Ht 165.1 cm; Wt 64.9 kg
[~2018-05-01 14:30] MED LIST changes: +GLIM2TAB2 PO; +HYDR-3164 PO; +METF500T16 PO; -METF500T4 PO; +RANI150T21 PO
[2018-05-01] MEDS ORDERED: HYDROcodone/APAP 5/325MG 1 TAB TABLET PO ONE (15:45)
[2018-05-01] MEDS ORDERED: ORPHENADRINE CITRATE 60 MG/2 ML VIAL. IM ONE (15:45)
--- NOTE | 2018-05-01 16:51 | PHYS DOC ---
Past Medical History Past Medical History: Depression, Diabetes-Type II, Fibromyalgia, High Cholesterol, Hypertension, Kidney Stone, Migraines, Other Additional Past Medical Histor: SPASTIC COLON,TMJ,CHRONIC PAIN Past Surgical History: Cholecystectomy, Hysterectomy, Tubal ligation, Other Additional Past Surgical Histo: KIDNEY STONES REMOVAL, L EAR Alcohol Use: None Drug Use: None Adult General Chief Complaint Chief Complaint: MECHANICAL FALL HPI HPI Patient is a 62 year old female who presents with patient states she is at [facility] and was walking the parking lot and tripped over one of the parking space.. Patient states that her right shoulder, right humerus, right knee are painful and she also hit her face and right side of her forehead on the ground. She denies LOC, abdominal pain, nausea or vomiting. She does have a c-collar on. Does complain of some neck pain. Review of Systems Review of Systems Constitutional: Denies fever or chills [] Eyes: Denies change in visual acuity, redness, or eye pain [] HENT: Denies nasal congestion or sore throat [] Respiratory: Denies cough or shortness of breath [] Cardiovascular: No additional information not addressed in HPI [] GI: Denies abdominal pain, nausea, vomiting, bloody stools or diarrhea [] : Denies dysuria or hematuria [] Musculoskeletal: Small quarter-sized lump Nasal pain, Right humerus, Mid cervical spine back pain or right knee and shoulder joint pain [] Integument: Abrasion to right knee, half a centimeter superficial cut to upper inner lip. Denies rash or skin lesions [] Neurologic: Denies headache, focal weakness or sensory changes [] All other systems were reviewed and found to be within normal limits, except as documented in this note. Current Medications Current Medications Current Medications Medications (Trade) Dose Ordered Sig/Jason Start Time Stop Time Status Last Admin Dose Admin Acetaminophen/ Hydrocodone Bitart (Lortab 5/325) 1 tab 1X ONCE 05/01/18 15:45 05/01/18 15:46 DC 05/01/18 15:49 1 TAB Orphenadrine Citrate (Norflex) 60 mg 1X ONCE 05/01/18 15:45 05/01/18 15:46 DC 05/01/18 15:49 60 MG Allergies Allergies Allergies Coded Allergies Type Severity Reaction Last Updated Verified prochlorperazine Allergy Severe SIEZURES 06/13/15 Yes Jwzkhzz-Pxn-Ihr Reductase Inhibitor Allergy Intermediate RASH, LEG CRAMPS Yes egg Allergy Intermediate DIARRHEA 06/13/15 Yes gluten Allergy Intermediate 03/01/17 Yes lactose Allergy Intermediate DIARRHEA 06/13/15 Yes Physical Exam Physical Exam Constitutional: Well developed, well nourished, no acute distress, non-toxic appearance. [] HENT: Normocephalic, atraumatic, bilateral external ears normal, oropharynx moist, no oral exudates, nose normal. [] Eyes: PERRLA, EOMI, conjunctiva normal, no discharge. [] Neck: Normal range of motion, no tenderness, supple, no stridor. [] Cardiovascular:Heart rate regular rhythm, no murmur [] Lungs & Thorax: Bilateral breath sounds clear to auscultation [] Abdomen: Bowel sounds normal, soft, no tenderness, no masses, no pulsatile masses. [] Skin: Abrasion to right knee, half a centimeter superficial cut to upper inner lip. Warm, dry, no erythema, no rash. [] Back: Cervical spine tenderness, no CVA tenderness. [] Extremities: Right knee, shoulder, humerus tenderness, no cyanosis, no clubbing , right knee, shoulder ROM not intact due to pain, no edema. [] Neurologic: Alert and oriented X 3, normal motor function, normal sensory function, no focal deficits noted. [] Psychologic: Affect normal, judgement normal, mood normal. [] Current Patient Data Vital Signs Vital Signs Date Time Temp Pulse Resp B/P (MAP) Pulse Ox O2 Delivery O2 Flow Rate FiO2 05/01/18 16:34 72 20 97 05/01/18 15:49 Room Air 05/01/18 14:30 97.9 191/83 (119 97.9 EKG EKG [] Radiology/Procedures Radiology/Procedures CT head, maxillofacial, cervical spine, x-ray humerus, knee, elbow, shoulder Impressions: [facility] [address] [place] [address] IMAGING REPORT Signed PATIENT: AIDAN YOUNG ACCOUNT: [id number] : 1955 LOCATION: ER AGE: 62 SEX: F EXAM STATUS: REG ER ORD. PHYSICIAN: TANVIR BECK APRN REASON: FALL PROCEDURE: CT CERVICAL SPINE WO CONTRAST PQRS Compliance statement: One or more of the following individualized dose reduction techniques were utilized for this examination: 1. Automated exposure control. 2. Adjustment of the mA and/or kV according to patient size. 3. Use of iterative reconstruction technique. Indication:FALL, HEAD AND FACIAL INJURY, NECK PAIN TECHNIQUE: CT head without IV contrast COMPARISON:None FINDINGS: No pathologic extra-axial or intra-axial fluid collection. The ventricles and basal cisterns are within normal limits. No acute intracranial bleed. No focal loss of figueroa-white differentiation. No acute calvarial fracture. Bilateral mastoid air cells are clear. No large scalp hematoma. IMPRESSION: No acute intracranial process. Indication:FALL, HEAD AND FACIAL INJURY, NECK PAIN TECHNIQUE: CT of the maxillofacial bones without IV contrast multiplanar reformats. COMPARISON: None FINDINGS: There is mild rightward deviation of the nasal septum. The bilateral zygoma and zygomatic arches are within normal limits. Bilateral external auditory canals are within normal limits. Bilateral pterygoid plates are within normal limits. Bilateral temporomandibular joints and mandible are within normal limits. The paranasal sinuses and mastoid air cells are clear. The lenses, globes, extraocular muscles and intraorbital fat are within normal limits. No fascial soft tissue swelling or hematoma. IMPRESSION: No acute findings. Indication:FALL, HEAD AND FACIAL INJURY, NECK PAIN TECHNIQUE: CT of the cervical spine without IV contrast with multiplanar reformats. COMPARISON:None FINDINGS: The cervical spine is in normal anatomic alignment. Atlantoaxial joint interval is preserved. No compression deformities. Facet joints are in normal anatomic alignment. No acute fractures. The visualized noncontrast appearance of the neck soft tissue is within normal limits. Visualized lung apices are clear. IMPRESSION: No acute cervical spine fractures. Electronically signed by: Aaron Pitts DO (05/01/2018 4:46 PM) [facility] DICTATED and SIGNED BY: AARON PITTS DO DATE: 05/01/18 1638 [facility] [address] [place], [place] [id number] IMAGING REPORT Signed PATIENT: AIDAN YOUNG ACCOUNT: [id number] : 1955 LOCATION: ER AGE: 62 SEX: F EXAM STATUS: REG ER ORD. PHYSICIAN: TANVIR BECK APRN REASON: FALL PROCEDURE: ELBOW RIGHT 3V EXAM: 1. AP and lateral views of the right humerus 2. AP, oblique and lateral views of the right elbow DATE: 05/01/2018 3:35 PM INDICATION: FALL ONTO CONCRETE COMPARISON: No Prior FINDINGS/ IMPRESSION: No evidence of acute fracture or dislocation. No elbow joint effusion. Small AC joint osteophytes are seen. Electronically signed by: Scott Morales MD (05/01/2018 5:15 PM) [facility] DICTATED and SIGNED BY: SCOTT MORALES MD DATE: 05/01/181713 [facility] [address] [place] [address] IMAGING REPORT Signed PATIENT: AIDAN YOUNG ACCOUNT: [id number] : 1955 LOCATION: ER AGE: 62 SEX: F EXAM STATUS: REG ER ORD. PHYSICIAN: TANVIR BECK APRN REASON: FALL PROCEDURE: KNEE RIGHT 3V EXAM: 3 views right knee DATE: 05/01/2018 3:35 PM INDICATION: FALL ONTO CONCRETE COMPARISON: 09/09/2017, 10/20/2017 FINDINGS: No evidence of acute fracture or dislocation. Mild medial compartment joint space narrowing with small tricompartmental osteophytes. No significant right knee joint effusion. IMPRESSION: 1. No evidence of acute fracture or dislocation. 2. Right knee joint osteoarthritis Electronically signed by: Scott Morales MD (05/01/2018 5:16 PM) [facility] DICTATED and SIGNED BY: SCOTT MORALES MD DATE: 05/01/181714 Course & Med Decision Making Course & Med Decision Making Patient is a 62 year old female who presents with patient states she is at [facility] and was walking the parking lot and tripped over one of the parking space.. Patient states that her right shoulder, right humerus, right knee are painful and she also hit her face and right side of her forehead on the ground. She denies LOC, abdominal pain, nausea or vomiting. She does have a c-collar on. Does complain of some neck pain. Patient has cervical spine focal tenderness, no tenderness, top lip tenderness with the inside of her top lip with a superficial half centimeter cut that looks like from her bottom tooth. Patient has an abrasion to her right knee and bruising to the right knee with tenderness on palpation on the sides bilaterally in the top of the knee. Patient can bend the knee but with pain. Patient can lift her shoulder up to shoulder height but no higher due to pain. She does have tenderness to palpation of the shoulder. Patient denies any elbow pain but there is right humerus tenderness with palpation. Abdomen is soft and nontender. There are no for many seen. Patient is alert and oriented and speaks in full clear sentences. She denies any head pain, abdominal pain, dizziness, visual changes, numbness or tingling. She can move all extremities. Equal strengths in al extremities. Patient has a history of diabetes, hypertension, arthritis, fibromyalgia, depression, GERD. All CT scans of head, cervical spine, maxillofacial show no acute findings. X- rays show no acute findings. Patient will be sent home with muscle relaxer and [place] and ibuprofen. She is follow-up with her primary care as soon as possible. Dragon Disclaimer Dragon Disclaimer This electronic medical record was generated, in whole or in part, using a voice recognition dictation system. Departure Departure Impression: Primary Impression: Contusion Additional Impressions: Facial contusion Shoulder contusion Fall Disposition: HOME, SELF-CARE Condition: STABLE Referrals: RACH SANCHEZ MD (PCP) Patient Instructions: Contusion, Elbow Contusion, Facial or Scalp Contusion, Fall Prevention and Home Safety Additional Instructions: Use ice and heat and medications as prescribed. Follow-up with her doctor soon as she can. Scripts Ibuprofen (IBUPROFEN) 600 Mg Tablet 600 MG PO PRN Q6HRS PRN for INFLAMMATION, #20 TAB Prov: TANVIR BECK [employer] 05/01/18 Orphenadrine Citrate (ORPHENADRINE CITRATE) 100 Mg Tablet.er 1 TAB PO BID, #20 TAB Prov: TANVIR EBCK IND[employer]TER 05/01/18 Hydrocodone/Apap 5-325 (NORCO 5-325 TABLET) 1 Each Tablet 1 TAB PO PRN Q6HRS PRN for PAIN, #20 TAB 0 Refills Prov: TANVIR BECK APRN 05/01/18 Problem Qualifiers Primary Impression: Contusion Encounter type: initial encounter Contusion area: knee Laterality: right Qualified Codes: S80.01XA - Contusion of right knee, initial encounter Additional Impressions: Facial contusion Encounter type: initial encounter Qualified Codes: S00.83XA - Contusion of other part of head, initial encounter Shoulder contusion Encounter type: initial encounter Laterality: right Qualified Codes: S40.011A - Contusion of right shoulder, initial encounter Fall Encounter type: initial encounter Qualified Codes: W19.XXXA - Unspecified fall, initial encounter TANVIR BECK APRN May 01, 2018 16:51
--- NOTE | 2018-05-01 17:19 | RAD ---
EXAM: 1. AP and lateral views of the right humerus 2. AP, oblique and lateral views of the right elbow DATE: 05/01/2018 3:35 PM INDICATION: FALL ONTO CONCRETE COMPARISON: No Prior FINDINGS/ IMPRESSION: No evidence of acute fracture or dislocation. No elbow joint effusion. Small AC joint osteophytes are seen. Electronically signed by: Scott Corrales MD (05/01/2018 5:15 PM) [facility]
--- NOTE | 2018-05-01 17:19 | RAD ---
EXAM: 1. AP and lateral views of the right humerus 2. AP, oblique and lateral views of the right elbow DATE: 05/01/2018 3:35 PM INDICATION: FALL ONTO CONCRETE COMPARISON: No Prior FINDINGS/ IMPRESSION: No evidence of acute fracture or dislocation. No elbow joint effusion. Small AC joint osteophytes are seen. Electronically signed by: Scott Corrales MD (05/01/2018 5:15 PM) [facility]
--- NOTE | 2018-05-01 17:20 | RAD ---
EXAM: 3 views right knee DATE: 05/01/2018 3:35 PM INDICATION: FALL ONTO CONCRETE COMPARISON: 09/09/2017, 10/20/2017 FINDINGS: No evidence of acute fracture or dislocation. Mild medial compartment joint space narrowing with small tricompartmental osteophytes. No significant right knee joint effusion. IMPRESSION: 1. No evidence of acute fracture or dislocation. 2. Right knee joint osteoarthritis Electronically signed by: Scott Corrales MD (05/01/2018 5:16 PM) [facility]
[2018-05-01] MEDS ORDERED: HYDR-3164 PO (17:29)
[2018-05-01] MEDS ORDERED: IBUP-1007 PO (17:29)
[2018-05-01] MEDS ORDERED: ORPH100T PO (17:29)
[2018-05-01 17:48] VITALS: BP 153/71
== END 2018-05-01 18:03 | disposition home or self-care (01) ==
LOC: ER 14:30
DX: S01.511A Laceration without foreign body of lip, initial encounter (principal); S00.03XA Contusion of scalp, initial encounter; S00.83XA Contusion of other part of head, initial encounter; S40.011A Contusion of right shoulder, initial encounter; S80.01XA Contusion of right knee, initial encounter; M54.2 Cervicalgia; M17.11 Unilateral primary osteoarthritis, right knee; E11.9 Type 2 diabetes mellitus without complications; I10 Essential (primary) hypertension; M79.7 Fibromyalgia; F32.9 Major depressive disorder, single episode, unspecified; G89.29 Other chronic pain; E78.00 Pure hypercholesterolemia, unspecified; G43.909 Migraine, unspecified, not intractable, without status migrainosus; K21.9 Gastro-esophageal reflux disease without esophagitis; Z87.442 Personal history of urinary calculi; Z88.8 Allergy status to other drugs, medicaments and biological substances; Z91.012 Allergy to eggs; W18.09XA Striking against other object with subsequent fall, initial encounter; Y93.01 Activity, walking, marching and hiking; Y92.481 Parking lot as the place of occurrence of the external cause; Y99.8 Other external cause status
CPT/HCPCS: 70450; 70486; 72125; 73060; 73080; 73562; 96372; 99284; J2360

== ENCOUNTER → 2018-06-09 | Outpatient (CLI) | payer BC ==
[~2018-06-09] MED LIST changes: +BUPIVACAINE MPF 0.5% 10 ML VIAL for KCIC. IJ ONE; +CONTRAST GIVEN. MC PRN; +IBUP-1007 PO; +IOHEXOL 300 MG/ML 50 ML VIAL. INT ART ONE; +LIDOCAINE 1% Multi-Dose 20 ML VIAL. ID ONE; +ORPH100T PO; +methylPREDNISolone ACETATE 40 MG/ML VIAL. INT ART ONE
--- NOTE | 2018-06-09 17:18 | KCIC ---
Therapeutic right bicipital groove injection using fluoroscopic guidance. HISTORY: Pain. TECHNIQUE The procedure was explained to the patient as were potential risks, including among others infection, bleeding or allergic reaction. All questions were answered. Informed written consent was obtained. The anterior shoulder was prepped and draped in the usual sterile manner. Following administration of local anesthetic, a 22-gauge needle was advanced to the bicipital groove without difficulty. Following negative aspiration, a mixture of 1 cc (40 mg) Depo-Medrol, and 1 cc 0.5% Marcaine were injected without difficulty. The needle was removed. There was good hemostasis at the injection site. The patient left in stable condition without immediate complication. 2 spot images are obtained. FLUOROSCOPY TIME: 32 seconds Electronically signed by: Aureliano Venegas MD (06/09/2018 5:13 PM) [id number]
== END | disposition home or self-care (01) ==
LOC: KCIC 11:51
PROVIDERS: ATTEND Orthopaedic Surgery Sports Medicine
DX: M25.511 Pain in right shoulder (principal); Z91.012 Allergy to eggs; Z88.8 Allergy status to other drugs, medicaments and biological substances; Z91.048 Other nonmedicinal substance allergy status
CPT/HCPCS: 20610; 77002; J1030; Q9967